=== PATIENT | male | born 1960 | race Two or more races ===

== ENCOUNTER 2020-11-09 15:13 | Emergency (ER) | payer MEDICAID ==
[~2020-11-09] VITALS: Ht 162.6 cm; Wt 89.0 kg
[2020-11-09 15:21] VITALS: BP 110/85
== END 2020-11-09 17:51 | disposition home or self-care (01) ==
LOC: ED 17:45
DX: M10.072 Idiopathic gout, left ankle and foot (principal); E11.9 Type 2 diabetes mellitus without complications
CPT/HCPCS: 36415; 73610; 73630; 84550; 85025; 99284; J7512